=== PATIENT | female | born 1960 | race Hispanic/Latino ===

== ENCOUNTER → 2020-02-20 | Outpatient (CLI) | payer MEDICARE ==
[~2020-02-20] MED LIST: CETI10TA86 PO; CLOB30CR5 TP; DEPLIN PO; DICL2100G TP; EPINEPHRINE; EZET10TA13 PO; FLUO20CA30 PO; LEVO25TA54 PO; LIDOCAINE TP; MELA1TAB28 PO; MUPI22OI2 TP; NYSTPW TP; OXCA600T18 PO; PREG75 PO; PREMC VG; PROAIR PO; QUETIAPINE PO
== END | disposition home or self-care (01) ==
LOC: SHCH 12:59
PROVIDERS: ATTEND Internal Medicine Cardiovascular Disease
DX: Z09 Encounter for follow-up examination after completed treatment for conditions other than malignant neoplasm (principal); I87.2 Venous insufficiency (chronic) (peripheral)
CPT/HCPCS: 93971

== ENCOUNTER → 2020-08-20 | Outpatient (CLI) | payer MEDICARE | END | disposition home or self-care (01) | LOC: SHCH 12:39 | PROVIDERS: ATTEND Internal Medicine Cardiovascular Disease | DX: Z09 Encounter for follow-up examination after completed treatment for conditions other than malignant neoplasm (principal); I87.2 Venous insufficiency (chronic) (peripheral) | CPT/HCPCS: 93970 ==